=== PATIENT | female | born 1950 ===

== ENCOUNTER 2017-08-08 00:08 | Inpatient (IN) | payer SELFPAY ==
[~2017-08-08] VITALS: Ht 152.4 cm; Wt 44.5 kg
[2017-08-08] MEDS ORDERED: ALBUTEROL SULFATE 2.5 MG/3 ML NEBU NEB ONE (00:30)
[2017-08-08] MEDS ORDERED: IV NORMAL SALINE 1000 ML BAG IV ONE (00:30)
[2017-08-08] MEDS ORDERED: IPRATROPIUM BROMIDE 0.5 MG/2.5 ML NEBU NEB ONE (00:30)
[2017-08-08] MEDS ORDERED: IPRATROPIUM BROMIDE 0.5 MG/2.5 ML NEBU ONE (00:48)
[2017-08-08] MEDS ORDERED: ALBUTEROL SULFATE 2.5 MG/3 ML NEBU ONE (00:48)
[2017-08-08] MEDS ORDERED: AZITHROMYCIN 250 MG TABLET PO ONE (01:15)
[2017-08-08] MEDS ORDERED: CEFTRIAXONE 1 G in IV DEXTROSE 5% 50 ML IV ONE (01:15)
[2017-08-08 01:21] LABS: BASOPHILS % (AUTO) 0.5 % (0.0-2.0); HEMATOCRIT 33.6 % (31.2-41.9); HEMOGLOBIN 11.2 g/dL (10.9-14.3); LYMPHOCYTES # (AUTO) 0.2 K/uL (20.0-40.0); MEAN CORPUSCULAR HEMOGLOBIN 28.9 uug (24.7-32.8); MEAN CORPUSCULAR HGB CONC 33 g/dL (32.3-35.6); MEAN CORPUSCULAR VOLUME 86.7 fL (75.5-95.3); MONOCYTES # (AUTO) 0.4 K/uL (2.0-10.0); MONOCYTES % (AUTO) 5.8 % (0.0-11.0); NEUTROPHILS # (AUTO) 6.9 K/uL (1.8-8.9); NEUTROPHILS % (AUTO) 90.7 % (38.5-71.5); PLATELET COUNT (AUTO) 310 K/uL (179-408); RED BLOOD CELL COUNT(AUTO) 3.88 MIL/uL (3.63-4.92); WHITE BLOOD COUNT (AUTO) 7.7 K/uL (3.8-11.8)
[2017-08-08] MEDS ORDERED: CEFTRIAXONE 1 G VIAL ONE (01:53)
[2017-08-08] MEDS ORDERED: AZITHROMYCIN 250 MG TABLET ONE (01:54)
[2017-08-08 02:07] LABS: CREATININE 0.8 mg/dL (0.6-1.3); POTASSIUM 3.4 mmol/L (3.5-5.1)
[2017-08-08 04:45] VITALS: BP 111/50
[2017-08-08] MEDS ORDERED: MAGNESIUM HYDROXIDE 30 ML LIQUID UDC PO PRN (04:45)
[2017-08-08] MEDS ORDERED: ZOLPIDEM 5 MG TABLET PO PRN (04:45)
[2017-08-08] MEDS ORDERED: ONDANSETRON 4 MG/2 ML VIAL IV PRN (04:45)
[2017-08-08] MEDS ORDERED: HYDROCODONE/APAP 5-325MG TABLET PO PRN (04:45)
[2017-08-08] MEDS ORDERED: ACETAMINOPHEN 325 MG TABLET PO PRN (04:45)
--- NOTE | 2017-08-08 05:00 | NUR ---
NSG: ADMITTED PATIENT A/O X3 AMBULATORY FROM ER TO MED SURG FLOOR ROOM 224. ON TELE METERY.SHOWING SR 89 TO 90. ON ROOM AIR. NOTED DRY COUGH. IVF RUNNING WELL.IVHL ON LEFT AC GAUGE 20 PATENT. NEED TRANSFORMATION COACH TO USE BATH ROOM. V/S WNL. ASSISTED IN BED. NO C/O PAIN OR DISCOMFORT AT THIS TIME. RESTING IN BED.CALL LIGHT W/IN REACH.
--- NOTE | 2017-08-08 05:01 | NUR ---
Pt. admitted to TELE, under care of Juju Layton (SCARLETT). Belongs List completed
[2017-08-08] MEDS: IV NS 1000 ML 1,000 ML IV PRN (05:17)
--- NOTE | 2017-08-08 06:14 | NUR ---
NSG: PATIENT BELONGING ONE SUIT CASE AND BLANKET. PATIENT STATED DON'T TOUCH MY SUIT CASE NOTHING IN SIDE ONLY MY CLOTH. CHARGE NURSE MADE AWARE.
--- NOTE | 2017-08-08 06:55 | NUR ---
NSG: PATIENT SLEEPING EYE CLOSE. SR ON TELE MONITOR. HR 80 TO 90. NO C/O CP OR SOB.V/S WNL. CONTINUE PLAN OF CARE.
--- NOTE | 2017-08-08 07:00 | NUR ---
RECEIVED REPORT FROM ELECTRONICS ASSEMBLER NURSE, PATIENT IN BED ASLEEP, NO EVIDENCE OF DISTRESS NTOED, BED IN LOW POSITION, SIDE RAILS UP X2.
[2017-08-08] MEDS ORDERED: ALBUTEROL SULFATE 2.5 MG/3 ML NEBU NEB PRN (10:30)
[2017-08-08] MEDS ORDERED: OSELTAMIVIR PHOSPHATE 75 MG CAPSULE PO SCH (10:30)
[2017-08-08] MEDS ORDERED: IPRATROPIUM BROMIDE 0.5 MG/2.5 ML NEBU NEB PRN (10:30)
[2017-08-08 11:07] VITALS: BP 101/49
[2017-08-08] MEDS: OSELTAMIVIR NG/GT 30 MG/5 ML LIQ PO SCH ×2 (12:13→22:31)
[2017-08-08 13:08] LABS: BASOPHILS % (AUTO) 0.5 % (0.0-2.0); LYMPHOCYTES # (AUTO) 0.3 K/uL (20.0-40.0); MONOCYTES # (AUTO) 0.4 K/uL (2.0-10.0); NEUTROPHILS # (AUTO) 4.9 K/uL (1.8-8.9); PLATELET COUNT (AUTO) 256 K/uL (179-408)
[2017-08-08 13:14] LABS: LYMPHOCYTES % (AUTO) 5.4 % (20.5-51.5); MEAN CORPUSCULAR HGB CONC 32 g/dL (32.3-35.6); MEAN CORPUSCULAR VOLUME 86.8 fL (75.5-95.3); MONOCYTES % (AUTO) 7.2 % (0.0-11.0); NEUTROPHILS % (AUTO) 86.9 % (38.5-71.5); RED BLOOD CELL COUNT(AUTO) 3.56 MIL/uL (3.63-4.92); WHITE BLOOD COUNT (AUTO) 5.6 K/uL (3.8-11.8)
[2017-08-08] MEDS: ALBUTEROL SULFATE 2.5 MG/3 ML NEBU NEB SCH ×2 (13:30→20:06)
[2017-08-08] MEDS: IPRATROPIUM BROMIDE 0.5 MG/2.5 ML NEBU NEB SCH ×2 (13:30→20:07)
[2017-08-08 13:37] LABS: BILIRUBIN,TOTAL 0.2 mg/dL (0.2-1.0); CREATININE 0.5 mg/dL (0.6-1.3); PHOSPHOROUS 2.5 mg/dL (2.5-4.9); POTASSIUM 3.8 mmol/L (3.5-5.1); TOTAL PROTEIN, SERUM 6.1 g/dL (6.4-8.2)
[2017-08-08 13:49] LABS: THYROID STIMULATING HORMONE 1.054 mIU/mL (0.358-3.740)
[2017-08-08] MEDS: methylPREDNISolone SOD SUCC 40 MG/ML VIAL IV SCH ×2 (14:33→22:53)
[2017-08-08 15:04] VITALS: BP 106/52
[2017-08-08] MEDS ORDERED: POTASSIUM CHLORIDE 20 MEQ TAB.PRT.SR PO ONE (16:45)
--- NOTE | 2017-08-08 17:00 | NUR ---
RT NOT AWARE OF TX TIL LATE IN SHIFT.
--- NOTE | 2017-08-08 18:46 | NUR ---
PATIENT HAS BEEN COOPERATIVE WITH TREATMENT TODAY, HAS HAD SOME PAIN IN RIGHT FLANK, AND AN ELEVATED FEVER. FEVER HAS RESOLVED AND PAIN HAS BEEN REPORTED TO DR HERRERA. PATIENT IS CURRENTLY IN BED ASLEEP. BED IN LOW POSITION, SIDE RAILS UP X2.
[2017-08-08 19:00] VITALS: BP 98/50
--- NOTE | 2017-08-08 19:30 | NUR ---
RECEIVED SHIFT REPORT FROM DAY SHIFT NURSE. PATIENT IS VERY LETHARGIC WHEN SLEEPING. DIFFICULT TO WAKE UP. WHEN OPENS EYES, FALLS RIGHT BACK TO SLEEP. VITAL SIGNS STABLE. BED IN LOCKED/LOW POSITION, WITH SIDE RAILS UP X2, BED ALARM ON, CALL LIGHT WITHIN REACH.
[2017-08-08] MEDS: CEFTRIAXONE 1 G in IV DEXTROSE 5% 50 ML IV SCH (22:53)
[2017-08-08] MEDS: AZITHROMYCIN IV 250 MG in IV DEXTROSE 5% 250 ML IV SCH (23:46)
--- NOTE | 2017-08-09 00:45 | NUR ---
PATIENT A LOT MORE ALERT/ORIENTED WHEN AWAKE. STABLE CONDITION, NO S/S OF DISTRESS.
[2017-08-09] MEDS: IPRATROPIUM BROMIDE 0.5 MG/2.5 ML NEBU NEB SCH ×4 (01:30→19:30)
[2017-08-09] MEDS: ALBUTEROL SULFATE 2.5 MG/3 ML NEBU NEB SCH ×4 (01:30→19:30)
[2017-08-09] MEDS ORDERED: IPRATROPIUM BROMIDE 0.5 MG/2.5 ML NEBU ONE (02:20)
[2017-08-09 04:00] VITALS: BP 108/57
[2017-08-09] MEDS: IV NS 1000 ML 1,000 ML IV PRN (06:26)
[2017-08-09] MEDS: methylPREDNISolone SOD SUCC 40 MG/ML VIAL IV SCH ×2 (06:38→14:09)
[2017-08-09] MEDS: PANTOPRAZOLE SODIUM 40 MG TABLET.DR PO SCH (06:38)
--- NOTE | 2017-08-09 07:20 | NUR ---
RECEIVED REPORT FROM PARTNER MANAGEMENT CONSULTANT NURSE, PATIENT IN BED AWAKE, RESPONSIVE AND MAKING REQUESTS. BED IN LOW POSITION, SIDE RAILS UP X2. BED ALARM SET.
[2017-08-09] MEDS: OSELTAMIVIR NG/GT 30 MG/5 ML LIQ PO SCH (08:37)
[2017-08-09 09:19] LABS: CREATININE 0.5 mg/dL (0.6-1.3); POTASSIUM 4.5 mmol/L (3.5-5.1)
[2017-08-09 09:20] LABS: MAGNESIUM 1.9 mg/dL (1.8-2.4); PHOSPHOROUS 2.5 mg/dL (2.5-4.9)
--- NOTE | 2017-08-09 11:00 | NUR ---
Notified Dr. Cason that the patient has right lower flank pain and requested for him to look at it.
[2017-08-09 11:35] VITALS: BP 116/51
[2017-08-09 15:51] VITALS: BP 118/56
[2017-08-09 18:45] LABS: HEMATOCRIT 34.7 % (37-47); HEMOGLOBIN 11.6 G/DL (12.0-16.0); MEAN CORPUSCULAR HEMOGLOBIN 29.5 UUG (27.0-31.0); MEAN CORPUSCULAR VOLUME 88.2 FL (81.0-99.0); RED BLOOD CELL COUNT(AUTO) 3.94 MIL/UL (4.2-5.4); WHITE BLOOD COUNT (AUTO) 6.7 K/UL (4.0-11.2)
[2017-08-09 18:46] LABS: BASOPHILS % (AUTO) 0.1 % (0.0-2.0); LYMPHOCYTES # (AUTO) 0.3 K/UL (0.8-4.8); MEAN CORPUSCULAR HGB CONC 34 g/dL (32.0-37.0); MONOCYTES # (AUTO) 0.2 K/UL (0.1-1.30); NEUTROPHILS # (AUTO) 6.2 K/UL (1.8-8.9); NEUTROPHILS % (AUTO) 91.9 % (38.5-71.5); PLATELET COUNT (AUTO) 265 K/UL (150-450)
--- NOTE | 2017-08-09 18:51 | NUR ---
Patient asking for a Dr. for her lower right flank pain. Patient continues to have pain with movement. Patient is up in chair at this time, and has been cooperative with care. Patient is concerned that she hasn't seen a Dr. yet.
[2017-08-09 19:00] VITALS: BP 124/60
--- NOTE | 2017-08-09 19:40 | NUR ---
PATIENT AWAKE ALERT , SITTING ON THE CHAIR . NO SOB NOTED. NO DISTRESS NOTED AT THIS TIME. OBSERVING DROPLET ISOLATION FOR CONNOR Tavarez WILL CONTINUE TO MONITOR.
--- NOTE | 2017-08-09 19:50 | NUR ---
PT REFUSED HHN TX AT THIS TIME. NO RESP. DISTRESS NOTED. RN MAGY IS INFORMED AND AWARE.
[2017-08-09] MEDS: LACTOBACILLUS RHAMNOSUS GG 1 EACH CAPSULE PO SCH (20:58)
[2017-08-09] MEDS: OSELTAMIVIR PHOSPHATE 75 MG CAPSULE PO SCH (20:59)
[2017-08-09] MEDS: CEFTRIAXONE 1 G in IV DEXTROSE 5% 50 ML IV SCH (20:59)
[2017-08-09] MEDS: AZITHROMYCIN IV 250 MG in IV DEXTROSE 5% 250 ML IV SCH (22:01)
[2017-08-10] MEDS: IPRATROPIUM BROMIDE 0.5 MG/2.5 ML NEBU NEB SCH ×3 (01:30→13:30)
[2017-08-10] MEDS: ALBUTEROL SULFATE 2.5 MG/3 ML NEBU NEB SCH ×3 (01:30→13:30)
[2017-08-10 04:00] VITALS: BP 115/37
[2017-08-10] MEDS: PANTOPRAZOLE SODIUM 40 MG TABLET.DR PO SCH (06:05)
--- NOTE | 2017-08-10 07:15 | NUR ---
RECEIVED REPORT FROM AUTO DAMAGE ADJUSTER NURSE, PATIENT AWAKE IN BEDSIDE CHAIR, NO EVIDENCE OF DISTRESS NOTED AT THIS TIME, BED IN LOW POSITION, SIDE RAILS UP X2.
[2017-08-10] MEDS: LACTOBACILLUS RHAMNOSUS GG 1 EACH CAPSULE PO SCH (08:38)
[2017-08-10] MEDS: OSELTAMIVIR PHOSPHATE 75 MG CAPSULE PO SCH (08:42)
[2017-08-10] MEDS ORDERED: methylPREDNISolone SOD SUCC 40 MG/ML VIAL IV SCH (09:00)
--- NOTE | 2017-08-10 12:01 | NUR ---
PATIENT LEFT AMA
== END 2017-08-10 11:51 | disposition left against medical advice (07) | DRG 871 ==
LOC: ER 00:09 → TELE 02:00 → MED 11:22
PROVIDERS: ADMIT Nurse Practitioner Acute Care; ATTEND Internal Medicine
DX: A41.89 Other specified sepsis (principal); J11.00 Influenza due to unidentified influenza virus with unspecified type of pneumonia; E43 Unspecified severe protein-calorie malnutrition; G92 Toxic encephalopathy; Z68.1 Body mass index [BMI] 19.9 or less, adult; Z59.0 Homelessness; Z91.81 History of falling; D53.9 Nutritional anemia, unspecified; I51.7 Cardiomegaly; E87.6 Hypokalemia; Z79.82 Long term (current) use of aspirin
CPT/HCPCS: 36415; 70030-TC; 71010; 71045; 83605; 83735; 84100; 84443; 85025; 87040; 87400; 93005; 93307; 94640; A4663; J0456; J0696; J2920; J3490; J3590; J7030; J7060; Q0144